=== PATIENT | male | born 1980 | race Caucasian/White ===

== ENCOUNTER 2018-06-22 08:47 | Emergency (ER) | payer BC, OTHER ==
[~2018-06-22] VITALS: Ht 172.7 cm; Wt 96.2 kg
[2018-06-22] MEDS ORDERED: ACET-1467 PO (08:57)
[2018-06-22] MEDS ORDERED: ADAL40PE SQ (08:57)
[2018-06-22] MEDS ORDERED: FLAGYL (08:57)
[2018-06-22] MEDS ORDERED: PRED2.5T PO (08:57)
[2018-06-22 09:39] LABS: BASOPHILS % (AUTO) 0.3 % (0.0-2.0); EOSINOPHILS # (AUTO) 0.1 K/uL (0.0-0.7); EOSINOPHILS % (AUTO) 1.3 % (0.0-7.0); HEMATOCRIT 35.9 % (36.7-47.1); HEMOGLOBIN 11.7 g/dL (12.5-16.3); LYMPHOCYTES % (AUTO) 32.2 % (20.5-51.5); MEAN CORPUSCULAR HEMOGLOBIN 25.1 uug (23.8-33.4); MEAN CORPUSCULAR HGB CONC 33 g/dL (32.5-36.3); MEAN CORPUSCULAR VOLUME 76.8 fL (73.0-96.2); MONOCYTES % (AUTO) 10.4 % (0.0-11.0); NEUTROPHILS # (AUTO) 5.1 K/uL (1.8-8.9); NEUTROPHILS % (AUTO) 55.8 % (38.5-71.5); PLATELET COUNT (AUTO) 235 K/uL (152-348); RED BLOOD CELL COUNT(AUTO) 4.68 MIL/uL (4.06-5.63); WHITE BLOOD COUNT (AUTO) 9.2 K/uL (3.6-10.2)
[2018-06-22 09:41] LABS: POTASSIUM 3.2 mmol/L (3.5-5.1)
[2018-06-22 09:47] LABS: BILIRUBIN,DIRECT 0.2 mg/dL (0.0-0.2); BILIRUBIN,TOTAL 0.4 mg/dL (0.2-1.0); TOTAL PROTEIN, SERUM 6.5 g/dL (6.4-8.2)
[2018-06-22] MEDS ORDERED: SWABABLE VALVE TRANSFER SET EA MC ONE (12:06)
[2018-06-22] MEDS ORDERED: IV NORMAL SALINE 250 ML IV ONE (12:06)
[2018-06-22] MEDS ORDERED: IOHEXOL 350 100 ML INFUS..BTL ONE (12:06)
[2018-06-22] MEDS ORDERED: DEXAMETHASONE SOD PHOSPHATE 4 MG INJ ONE (13:06)
[2018-06-22 13:10] LABS: *BILIRUBIN,URIN NEGATIVE (NEGATIVE); *BLOOD, URINE NEGATIVE (NEGATIVE); *CLARITY,URINE CLEAR (CLEAR); *COLOR,URINE YELLOW (YELLOW); *KETONES,URINE NEGATIVE (NEGATIVE); *UROBILINOGEN,URINE 0.2 E.U./dl (NORMAL); LEUKOCYTE ESTERASE ,URINE NEGATIVE (NEGATIVE); NITRITE, URINE NEGATIVE (NEGATIVE); UGLUCOSE NEGATIVE (NEGATIVE)
[2018-06-22] MEDS: DEXAMETHASONE SOD PHOSPHATE 4 MG INJ IV ONE (13:10)
[2018-06-22 13:20] LABS: BACTERIA,URINE NONE SEEN /HPF (NONE SEEN); RBC,URINE 0-3 /HPF (0-3); SQUAMOUS EPITHELIAL CELL,UR NONE SEEN /HPF (NONE SEEN); WBC,URINE 0-3 /HPF (0-3)
[2018-06-22 13:25] LABS: *AMPHETAMINE, URINE NEGATIVE (NEGATIVE); *BARBITURATE, URINE NEGATIVE (NEGATIVE); *CANNABINOID, URINE NEGATIVE (NEGATIVE); *COCCAINE, URINE NEGATIVE (NEGATIVE); *OPIATE, URINE NEGATIVE (NEGATIVE); *PHENCYCLIDINE SCREEN,URINE NEGATIVE (NEGATIVE)
--- NOTE | 2018-06-22 14:22 | NUR ---
pt ambulated to bathroom multiple times. steady gait.
[2018-06-22 15:04] VITALS: BP 135/61
--- NOTE | 2018-06-22 15:05 | NUR ---
Patient discharged to home in stable conditon. Written and verbal after care instructions given. Patient verbalizes understanding of instructions. Taken by father home.
== END 2018-06-22 15:06 | disposition home or self-care (01) ==
LOC: ER 08:47
DX: R55 Syncope and collapse (principal); K50.90 Crohn's disease, unspecified, without complications; E27.3 Drug-induced adrenocortical insufficiency; T38.0X5A Adverse effect of glucocorticoids and synthetic analogues, initial encounter; Z79.899 Other long term (current) drug therapy; Y92.89 Other specified places as the place of occurrence of the external cause
CPT/HCPCS: 36415; 70496; 70498; 71045; 80048; 80076; 80307; 81001; 83605; 83690; 84484; 85025; 85730; 86850; 86900; 86901; 87040 ×2; 93005; 96374; 99284; J1100; Q9967; 70030-TC; A4663; J7050